=== PATIENT | female | born 1975 | race Caucasian/White ===

== ENCOUNTER 2021-01-24 21:24 | Emergency (ER) | payer SELFPAY ==
[~2021-01-24] VITALS: Ht 167.6 cm; Wt 90.0 kg
[~2021-01-24 21:24] MED LIST: ADDERALL XR20 MG PO; AUGMENTIN500 MG OR; BACLOFEN10 MG PO; BACTRIM DS1 TAB OR; BENADRYL 25MG C25 MG PO; BENADRYL 50MG C50 MG PO; CIPRO250 MG OR; CIPRO500 MG OR; CLONAZEP ODT1 MG OR; DARVOCET N-100100 - OR; DARVOCET-N100 MG OR; EFFEXOR XR75 MG OR; FLEXERIL PO; GABAPENTIN300 MG OR; GEMFIBROZIL600 MG OR; GEODON60 MG OR; KLONOPIN0.5 MG OR; LEXAPRO20 MG OR; LOPID600 MG OR; LORTAB5 PO; MACRODANTIN100 MG OR; MOTRIN800 MG OR; NAPROSYN500 MG OR; NAPROSYN500 MG PO; ONDANSETRON4 MG OR; OXYCODONE5 M1 OR; PHENAZOPYRID200 MG OR; PROMETHAZINE12.5 MG OR; PROMETHAZINE25 MG OR; PROZAC20 MG OR; REQUIP2 MG OR; SEROQUEL100 MG OR; TYLENOL 500MG TAB PO; ULTRAM ER100 MG OR; ULTRAM50 MG OR; VENTOLIN HF1 IN; VISTARIL25 MG OR
[2021-01-24 22:25] VITALS: BP 125/71
[2021-01-24 23:08] LABS: HEMATOCRIT 39.7 % (37.0-47.0); HEMOGLOBIN 12.8 g/dl (12.0-16.0); IMMATURE GRANULOCYTES 0.2 % (0.0-5.0); MEAN CELL VOLUME 95.2 fL CALC (80.0-100.0); MEAN CORPUSCULAR HGB 30.7 pG CALC (26.0-32.0); MEAN CORPUSCULAR HGB CONC 32.2 g/dL CAL (32.0-36.0); NEUT# 4.09 thou/uL (2.00-7.15); RED BLOOD COUNT 4.17 mill/uL (4.20-5.60); RED CELL DISTRI WIDTH 13.2 % (11.5-15.5)
[2021-01-24 23:28] LABS: HCG SERUM/URINE (NEG/POS) NEGATIVE (NEGATIVE)
== END 2021-01-25 00:13 | disposition home or self-care (01) | DRG 866 ==
LOC: ED 21:24
PROVIDERS: Family Medicine
DX: B34.9 Viral infection, unspecified (principal); Z20.822 Contact with and (suspected) exposure to COVID-19

== ENCOUNTER 2021-04-17 13:29 | Observation (INO) | payer SELFPAY ==
[~2021-04-17] VITALS: Ht 167.6 cm; Wt 95.0 kg
[2021-04-17 14:34] LABS: HEMATOCRIT 41.6 % (37.0-47.0); HEMOGLOBIN 13.1 g/dl (12.0-16.0); IMMATURE GRANULOCYTES 0.2 % (0.0-5.0); MEAN CORPUSCULAR HGB 30.5 pG CALC (26.0-32.0); MEAN CORPUSCULAR HGB CONC 31.5 g/dL CAL (32.0-36.0); NEUT# 9.46 thou/uL (2.00-7.15); RED BLOOD COUNT 4.29 mill/uL (4.20-5.60); RED CELL DISTRI WIDTH 12.9 % (11.5-15.5)
[2021-04-17 14:48] LABS: ALBUMIN 4.2 g/dL (3.2-5.0); ALKALINE PHOSPHATASE 63 u/l (38-126); ANION GAP 11 (6-22 (CALC)); BUN 9 mg/dL (7-17); BUN/CREATININE RATIO 15 (12-20 (CALC)); CARBON DIOXIDE 25 mmol/l (22-30); CHLORIDE 105 mmol/l (95-108); CREATININE 0.6 mg/dL (0.5-1.0); GFR > 60 ML/MIN (>=60 (CALC)); GFR FOR AFR.AMER. > 60 ML/MIN (>=60 (CALC)); POTASSIUM 4.3 mmol/l (3.5-5.1); SGOT/AST 39 u/l (14-36); SODIUM 137 mmol/l (137-146)
[2021-04-17 14:52] LABS: BILIRUBIN, TOTAL 0.9 mg/dL (0.0-1.4)
[2021-04-17 17:40] VITALS: BP 113/55
[2021-04-17 20:39] VITALS: BP 105/55
[2021-04-18 03:42] VITALS: BP 111/55
[2021-04-18 09:02] VITALS: BP 104/50
[2021-04-18] MEDS ORDERED: TYLENOL500 MG PO (09:39)
[2021-04-18] MEDS ORDERED: BL IBUPROFEN200 MG PO ×2 (09:40→09:50)
[2021-04-18] MEDS ORDERED: BENADRYL25 M1 PO (09:43)
[2021-04-18] MEDS ORDERED: FAMOTIDINE20 M3 PO (09:45)
[2021-04-18 15:00] VITALS: BP 107/55
[2021-04-18 19:31] VITALS: BP 113/58
[2021-04-19] VITALS (15 sets, daily range): BP systolic 101–173; BP diastolic 52–68
[2021-04-19 05:38] LABS: MEAN CELL VOLUME 92.5 fL CALC (80.0-100.0); MEAN CORPUSCULAR HGB 31.1 pG CALC (26.0-32.0); MEAN CORPUSCULAR HGB CONC 33.6 g/dL CAL (32.0-36.0); RED BLOOD COUNT 3.47 mill/uL (4.20-5.60); RED CELL DISTRI WIDTH 12.7 % (11.5-15.5)
[2021-04-19 05:42] LABS: HEMATOCRIT 32.1 % (37.0-47.0); HEMOGLOBIN 10.8 g/dl (12.0-16.0)
[2021-04-19 06:00] LABS: ANION GAP 11 (6-22 (CALC)); BUN 6 mg/dL (7-17); BUN/CREATININE RATIO 12 (12-20 (CALC)); CARBON DIOXIDE 23 mmol/l (22-30); CHLORIDE 108 mmol/l (95-108); CREATININE 0.5 mg/dL (0.5-1.0); GFR > 60 ML/MIN (>=60 (CALC)); GFR FOR AFR.AMER. > 60 ML/MIN (>=60 (CALC)); MAGNESIUM 1.8 mg/dL (1.6-2.3); POTASSIUM 3.7 mmol/l (3.5-5.1); SODIUM 137 mmol/l (137-146)
[2021-04-20 05:12] LABS: HEMATOCRIT 31.4 % (37.0-47.0); HEMOGLOBIN 10.3 g/dl (12.0-16.0); MEAN CORPUSCULAR HGB 30.8 pG CALC (26.0-32.0); MEAN CORPUSCULAR HGB CONC 32.8 g/dL CAL (32.0-36.0); RED BLOOD COUNT 3.34 mill/uL (4.20-5.60); RED CELL DISTRI WIDTH 12.9 % (11.5-15.5)
[2021-04-20 05:15] LABS: ANION GAP 6 (6-22 (CALC)); BUN 5 mg/dL (7-17); BUN/CREATININE RATIO 11 (12-20 (CALC)); CARBON DIOXIDE 27 mmol/l (22-30); CHLORIDE 108 mmol/l (95-108); CREATININE 0.5 mg/dL (0.5-1.0); GFR > 60 ML/MIN (>=60 (CALC)); GFR FOR AFR.AMER. > 60 ML/MIN (>=60 (CALC)); POTASSIUM 3.5 mmol/l (3.5-5.1); SODIUM 137 mmol/l (137-146)
[2021-04-20 08:07] VITALS: BP 118/72
[2021-04-20] MEDS ORDERED: PERCOCET 5/325M1 TAB PO (10:52)
[2021-04-20] MEDS ORDERED: DOXYCYCL HYC100 MG PO (10:52)
[2021-04-20] MEDS ORDERED: AMOX/K CLAV875 M1 PO (10:52)
[2021-04-20 11:23] VITALS: BP 100/58
[2021-04-20 15:55] VITALS: BP 116/60
== END 2021-04-20 23:00 | disposition home or self-care (01) | DRG 872 ==
LOC: ED 13:29 → ED-I 14:03 → ED 16:44 → MS2 16:45
PROVIDERS: Family Medicine; Nurse Practitioner; ADMIT Internal Medicine; ATTEND Internal Medicine
PROC: 0H98XZZ Drainage of Buttock Skin, External Approach (ICD-10-PCS; principal; 2021-04-19)
DX: A41.9 Sepsis, unspecified organism (principal); L03.317 Cellulitis of buttock; L02.31 Cutaneous abscess of buttock; K21.9 Gastro-esophageal reflux disease without esophagitis; E66.9 Obesity, unspecified; B95.61 Methicillin susceptible Staphylococcus aureus infection as the cause of diseases classified elsewhere; Z68.33 Body mass index [BMI] 33.0-33.9, adult; Z20.822 Contact with and (suspected) exposure to COVID-19
CPT/HCPCS: G0378; J1650; Q9967

== ENCOUNTER 2021-06-20 18:11 | Emergency (ER) | payer SELFPAY ==
[~2021-06-20] VITALS: Ht 167.6 cm; Wt 95.0 kg
[~2021-06-20 18:11] MED LIST changes: +AMOX/K CLAV875 M1 PO; +BENADRYL25 M1 PO; +BL IBUPROFEN200 MG PO; +DOXYCYCL HYC100 MG PO; +FAMOTIDINE20 M3 PO; +PERCOCET 5/325M1 TAB PO; +TYLENOL500 MG PO
[2021-06-20 18:59] LABS: IMMATURE GRANULOCYTES 0.1 % (0.0-5.0); MEAN CELL VOLUME 93.1 fL CALC (80.0-100.0); MEAN CORPUSCULAR HGB 30.5 pG CALC (26.0-32.0); MEAN CORPUSCULAR HGB CONC 32.8 g/dL CAL (32.0-36.0); NEUT# 5.39 thou/uL (2.00-7.15); RED BLOOD COUNT 4.49 mill/uL (4.20-5.60)
[2021-06-20 19:17] LABS: ALBUMIN 4.3 g/dL (3.2-5.0); ALKALINE PHOSPHATASE 76 u/l (38-126); BUN 10 mg/dL (7-17); BUN/CREATININE RATIO 17 (12-20 (CALC)); CHLORIDE 108 mmol/l (95-108); CREATININE 0.6 mg/dL (0.5-1.0); GFR > 60 ML/MIN (>=60 (CALC)); GFR FOR AFR.AMER. > 60 ML/MIN (>=60 (CALC)); HEMATOCRIT 41.8 % (37.0-47.0); HEMOGLOBIN 13.7 g/dl (12.0-16.0); POTASSIUM 3.7 mmol/l (3.5-5.1); SODIUM 137 mmol/l (137-146); TOTAL PROTEIN 8.3 g/dL (6.3-8.2)
[2021-06-20 19:30] LABS: ANION GAP 16 (6-22 (CALC)); BILIRUBIN, TOTAL 0.5 mg/dL (0.0-1.4); CARBON DIOXIDE 17 mmol/l (22-30); SGOT/AST 71 u/l (14-36)
[2021-06-20 22:00] VITALS: BP 151/73
[2021-06-20] MEDS ORDERED: ZPAK PO (22:08)
[2021-06-20] MEDS ORDERED: TESSALON PERLE100 MG PO (22:08)
== END 2021-06-20 22:30 | disposition home or self-care (01) | DRG 153 ==
LOC: ED 18:11
PROVIDERS: Family Medicine
DX: J06.9 Acute upper respiratory infection, unspecified (principal); F41.9 Anxiety disorder, unspecified; Z20.822 Contact with and (suspected) exposure to COVID-19

== ENCOUNTER 2022-10-05 18:57 | Emergency (ER) | payer SELFPAY ==
[~2022-10-05] VITALS: Ht 167.6 cm; Wt 85.0 kg
[~2022-10-05 18:57] MED LIST changes: +TESSALON PERLE100 MG PO; +ZPAK PO
[2022-10-05 19:08] VITALS: BP 143/91
[2022-10-05] MEDS ORDERED: ULTRAM50 MG PO (19:22)
[2022-10-05] MEDS ORDERED: AMOXICILLIN500 MG PO (19:22)
[2022-10-05 19:30] VITALS: BP 164/85
[2022-10-05 19:32] VITALS: BP 164/85
== END 2022-10-05 19:43 | disposition home or self-care (01) | DRG 159 ==
LOC: ED 18:57
DX: K04.7 Periapical abscess without sinus (principal); S02.5XXA Fracture of tooth (traumatic), initial encounter for closed fracture; X58.XXXA Exposure to other specified factors, initial encounter

== ENCOUNTER 2023-12-30 17:26 | Emergency (ER) | payer BC ==
[2023-12-30] VITALS (7 sets, daily range): BP systolic 122–161; BP diastolic 51–93
[~2023-12-30] VITALS: Ht 167.6 cm; Wt 105.4 kg
[~2023-12-30 17:26] MED LIST changes: +AMOXICILLIN500 MG PO; +FLEXERIL5 M1 PO; +NAPROXEN500 MG PO; +PREDNISONE50 MG PO; +ULTRAM50 MG PO
[2023-12-30] MEDS ORDERED: SODIUM CHLORIDE 0.9% 1,000 ML IV STA (17:46)
[2023-12-30] MEDS ORDERED: HYDROmorphone HCL 2 MG/AMP IV STA (17:46)
[2023-12-30] MEDS ORDERED: KETOROLAC TROMETHAMINE 30 MG/ML SDV IV STA (17:46)
[2023-12-30] MEDS ORDERED: ONDANSETRON HCl 4 MG/2 ML SDV IV STA (17:46)
[2023-12-30 18:01] LABS: URINE BILIRUBIN - DIPSTICK Negative (NEGATIVE); URINE BLOOD DIPSTICK Small (NEGATIVE); URINE GLUCOSE - DIPSTICK Negative (NEGATIVE); URINE KETONE Negative (NEGATIVE); URINE LEUK ESTERASE Negative (NEGATIVE); URINE NITRITE - DIPSTICK Negative (Negative); URINE PH 5.5 (4.5-8.0); URINE PROTEIN - DIPSTICK Negative (NEG-TRACE); URINE SPECIFIC GRAVITY >=1.030; URINE UROBILINOGEN - DIPSTICK 0.2 E.U./dL (0.2)
[2023-12-30 18:07] LABS: URINE COLOR Yellow
[2023-12-30 18:15] LABS: URINE SQUAMOUS EPITHELIAL CELL FEW EPI/hpf (0-FEW); URINE WBC 0-2 WBC/hpf (0-5)
[2023-12-30 18:36] LABS: BASO% 0.5 % (0-3); EOS% 3.5 % (0-8); HEMATOCRIT 40.4 % (37.0-47.0); HEMOGLOBIN 12.8 g/dl (12.0-16.0); IMMATURE GRANULOCYTES 0.1 % (0.0-5.0); MEAN CELL VOLUME 93.1 fL CALC (80.0-100.0); MEAN CORPUSCULAR HGB 29.5 pG CALC (26.0-32.0); MEAN CORPUSCULAR HGB CONC 31.7 g/dL CAL (32.0-36.0); MONO% 6.9 % (2-13); NEUT# 4.98 thou/uL (2.00-7.15); RED BLOOD COUNT 4.34 mill/uL (4.20-5.60)
[2023-12-30 18:55] LABS: ALBUMIN 4.1 g/dL (3.2-5.0); BILIRUBIN, TOTAL 0.3 mg/dL (0.02-1.3); CREATININE 0.7 mg/dL (0.5-1.0); POTASSIUM 3.7 mmol/l (3.5-5.1); TOTAL PROTEIN 7.2 g/dL (6.3-8.2)
[2023-12-30] MEDS ORDERED: diazePAM 10 MG/2 ML VIAL IV ONE (20:05)
[2023-12-30] MEDS ORDERED: HYDROcodone 5 MG/Acetaminophen 325 MG/COMBO PO ONE (20:35)
[2023-12-30] MEDS ORDERED: KETOROLAC TROMETHAMINE 30 MG/ML SDV IV ONE (20:35)
[2023-12-30] MEDS ORDERED: ONDANSETRON HCl 4 MG/2 ML SDV IV ONE (20:35)
[2023-12-30] MEDS ORDERED: TRAMADOL HCL50 MG PO (20:36)
[2023-12-30] MEDS ORDERED: VOLTAREN75 MG PO (20:36)
[2023-12-30] MEDS ORDERED: PROMETHAZINE HY25 M1 PO (22:07)
== END 2023-12-30 22:56 | disposition home or self-care (01) | DRG 392 ==
LOC: ED 17:26
PROVIDERS: Nurse Practitioner
DX: R10.31 Right lower quadrant pain (principal); M54.16 Radiculopathy, lumbar region